=== PATIENT | female | born 1955 | race Caucasian/White ===

== ENCOUNTER 2021-08-13 11:46 | Emergency (ER) | payer OTHER ==
[2021-08-13 12:14] VITALS: TEMP 97.8; BMI 31.8
[2021-08-13] MEDS ORDERED: KETOROLAC TROMETHAMINE 15 MG/ML VIAL IVPUSH ONE (14:01)
[2021-08-13] MEDS ORDERED: SODIUM CHLORIDE 0.9% 500 ML INFUS.BAG IV ONE (14:01)
[2021-08-13] MEDS ORDERED: KETOROLAC TROMETHAMINE 15 MG/ML VIAL ONE (14:20)
[2021-08-13 14:33] LABS: BASO % 0.6 % (0-2.0); EOS % 1.6 % (0-4.5); HEMOGLOBIN 14.5 GM/dL (10.7-15.3); LYMPH % 30.4 % (8-40); MCH 32.1 pg (25.7-33.7); MCHC 34.4 g/dl (32.0-36.0); MEAN CELL VOLUME 93.3 fl (80-96); MEAN PLT VOLUME 8.3 fl (7.5-11.1); MONO % 11.1 % (3.8-10.2); NEUT % 56.3 % (42.8-82.8); PLATELET COUNT 287 10^3/uL (134-434); RDW 13.1 % (11.6-15.6); WHITE BLOOD COUNT 9.1 K/mm3 (4.0-10.0)
[2021-08-13 15:02] LABS: ALBUMIN 3.6 g/dl (3.4-5.0); BLOOD UREA NITROGEN 13.2 mg/dL (7-18); CALCIUM 8.9 mg/dL (8.5-10.1)
[2021-08-13 15:07] LABS: BILIRUBIN,TOTAL 0.4 mg/dL (0.2-1); CREATININE 0.5 mg/dL (0.55-1.3); TOT PROT 6.9 g/dl (6.4-8.2)
[2021-08-13 16:05] LABS: EPI CELLS >36 /uL (0-25.1); HYALINE CASTS 2 /uL (0-3.1); PH,URINE 5.5 (5.0-8.0); URINE APPEARANCE CLOUDY; URINE BACTERIA 1131 /uL (0-1359); URINE BILIRUBIN NEGATIVE (NEGATIVE); URINE COLOR YELLOW; URINE GLUCOSE (UA) NEGATIVE (NEGATIVE); URINE KETONE NEGATIVE (NEGATIVE); URINE LEUK ESTERASE NEGATIVE (NEGATIVE); URINE NITRITE NEGATIVE (NEGATIVE); URINE PROTEIN NEGATIVE (NEGATIVE); URINE RBC 5 /uL (0-23.9); URINE UROBILINOGEN 0.2 mg/dL (0.2-1.0); URINE WBC 32 /uL (0-25.8)
[2021-08-13 18:59] VITALS: BP 148/76; PULSE 80
== END 2021-08-13 18:59 | disposition home or self-care (01) ==
LOC: JER 11:46
PROC: 3E0333Z Introduction of Anti-inflammatory into Peripheral Vein, Percutaneous Approach (ICD-10-PCS; principal; 2021-08-13)
DX: R10.9 Unspecified abdominal pain (principal)
CPT/HCPCS: 36415; 74176-TC; 80053; 81003; 85025; 93005; 93010; 96374; 99285-25

== ENCOUNTER 2021-12-01 11:07 | Observation (INO) | payer OTHER ==
[2021-12-01] MEDS ORDERED: predniSONE 20 MG TABLET (UD) PO ONE (12:07)
[2021-12-01] MEDS ORDERED: ALBUTEROL SO4 2.5/IPRATROPIUM 0.5 INH SOL 3 ML VIAL.NEB. NEB ONE (12:16)
[2021-12-01] MEDS ORDERED: predniSONE 20 MG TABLET (UD) ONE (12:16)
[2021-12-01] MEDS: ALBUTEROL SO4 2.5/IPRATROPIUM 0.5 INH SOL 3 ML VIAL.NEB. NEB SCH ×3 (12:49→13:20)
[2021-12-01 13:50] LABS: BASO % 0.6 % (0-2.0); EOS % 1.6 % (0-4.5); HEMATOCRIT 43.3 % (32.4-45.2); HEMOGLOBIN 14.6 GM/dL (10.7-15.3); LYMPH % 33.5 % (8-40); MCH 31.1 pg (25.7-33.7); MCHC 33.6 g/dl (32.0-36.0); MEAN CELL VOLUME 92.3 fl (80-96); MEAN PLT VOLUME 8.2 fl (7.5-11.1); MONO % 12.4 % (3.8-10.2); NEUT % 51.9 % (42.8-82.8); PLATELET COUNT 290 10^3/uL (134-434); RBC 4.69 M/mm3 (3.60-5.2); RDW 13.1 % (11.6-15.6); WHITE BLOOD COUNT 8.8 K/mm3 (4.0-10.0)
[2021-12-01 14:16] LABS: ALBUMIN 3.4 g/dl (3.4-5.0); CALCIUM 9.1 mg/dL (8.5-10.1)
[2021-12-01 14:20] LABS: CREATININE 0.6 mg/dL (0.55-1.3)
[2021-12-01 14:21] LABS: BILIRUBIN,TOTAL 0.5 mg/dL (0.2-1); TOT PROT 7.2 g/dl (6.4-8.2)
[2021-12-01] MEDS ORDERED: SODIUM CHLORIDE 0.9% 500 ML INFUS.BAG IV ONE (14:43)
[2021-12-01] MEDS ORDERED: diazePAM CARPU-JECT 10 MG/2 ML DISP.SYRIN IVPUSH ONE ×2 (15:24→16:36)
[2021-12-01] MEDS ORDERED: diazePAM CARPU-JECT 10 MG/2 ML DISP.SYRIN ONE ×2 (15:34→17:40)
[2021-12-01] MEDS ORDERED: ALBUTEROL SO4 HFA INHALER IH PRN (20:55)
[2021-12-01] MEDS ORDERED: HYDROCHLOROTHIAZIDE 25 MG TABLET (FP) PO SCH (21:00)
[2021-12-01] MEDS ORDERED: ATORVASTATIN CA 20 MG TABLET (FP) ONE (21:12)
[2021-12-01] MEDS ORDERED: HYDROCHLOROTHIAZIDE 25 MG TABLET (FP) ONE (21:12)
[2021-12-01] MEDS ORDERED: METOPROLOL TARTRATE 25 MG TABLET (FP) ONE (21:12)
[2021-12-01] MEDS: METOPROLOL TARTRATE 25 MG TABLET (FP) PO SCH (21:18)
[2021-12-01] MEDS: ATORVASTATIN CA 20 MG TABLET (FP) PO SCH (21:18)
[2021-12-01] MEDS ORDERED: MELATONIN 5 MG TABLETS PO ONE (21:46)
[2021-12-01] MEDS ORDERED: MONTELUKAST NA 5 MG TAB.CHEW PO SCH (22:14)
[2021-12-01] MEDS ORDERED: MELATONIN 5 MG TABLETS ONE (22:17)
[2021-12-01] MEDS ORDERED: LORazepam 1 MG TABLET PO PRN (22:25)
[2021-12-01] MEDS ORDERED: FOLIC ACID INJECTION - 1 MG, THIAMINE HCL 100 MG, MULTIVIT INJECTION ADULT 10 ML in SOD... IVPB ONE (23:00)
[2021-12-01] MEDS ORDERED: THIAMINE HCL 100 MG TABLET (FP) ONE (23:36)
[2021-12-01] MEDS ORDERED: MONTELUKAST NA 10 MG TABLET ONE (23:36)
[2021-12-01] MEDS ORDERED: methylPREDNISolone NA SUCC 40 MG/1 ML VIAL ONE (23:36)
[2021-12-01] MEDS ORDERED: AZITHROMYCIN IVPB 500 MG/250 ML BAG IVPB ONE (23:37)
[2021-12-01] MEDS ORDERED: LORazepam 1 MG TABLET ONE (23:47)
[2021-12-02] MEDS: LORazepam 1 MG TABLET PO SCH ×6 (00:01→22:23)
[2021-12-02] MEDS: BUDESONIDE/FORMETEROL FUMARATE 80/4.5 mcg INHALER IH SCH ×3 (00:01→23:06)
[2021-12-02] MEDS: methylPREDNISolone NA SUCC 40 MG/1 ML VIAL IVPUSH SCH ×3 (00:01→10:14)
[2021-12-02] MEDS: AZITHROMYCIN IVPB 500 MG/250 ML BAG IVPB SCH ×2 (00:02→10:20)
[2021-12-02] MEDS: THIAMINE HCL 100 MG TABLET (FP) PO SCH ×3 (00:02→22:23)
[2021-12-02] MEDS ORDERED: ALBUTEROL SO4 HFA INHALER IH PRN (00:32)
[2021-12-02] MEDS ORDERED: methylPREDNISolone NA SUCC 40 MG/1 ML VIAL ONE ×2 (03:02→09:42)
[2021-12-02] MEDS ORDERED: INSULIN (NOVOLOG) ASPART 100 UNITS/ML 10ML VIAL ONE (06:02)
[2021-12-02] MEDS ORDERED: LORazepam 1 MG TABLET ONE ×2 (06:02→11:21)
[2021-12-02] MEDS: INSULIN SLIDING SCALE (NOVOLOG) 1 VIAL SQ SCH ×4 (06:20→22:30)
[2021-12-02 07:49] LABS: CALCIUM 8.2 mg/dL (8.5-10.1)
[2021-12-02 07:50] LABS: ALBUMIN 3.1 g/dl (3.4-5.0); BLOOD UREA NITROGEN 12.4 mg/dL (7-18); MAGNESIUM 1.3 mg/dL (1.8-2.4)
[2021-12-02 07:52] LABS: CREATININE 0.6 mg/dL (0.55-1.3); PHOSPHOROUS 3.4 mg/dL (2.5-4.9)
[2021-12-02 07:54] LABS: TOT PROT 6.3 g/dl (6.4-8.2)
[2021-12-02 07:55] LABS: BILIRUBIN,TOTAL 0.6 mg/dL (0.2-1)
[2021-12-02 08:38] LABS: HEMATOCRIT 38.7 % (32.4-45.2); HEMOGLOBIN 12.9 GM/dL (10.7-15.3); MCH 31.3 pg (25.7-33.7); MCHC 33.4 g/dl (32.0-36.0); MEAN CELL VOLUME 93.9 fl (80-96); MEAN PLT VOLUME 8.3 fl (7.5-11.1); PLATELET COUNT 229 10^3/uL (134-434); RBC 4.12 M/mm3 (3.60-5.2); RDW 13.1 % (11.6-15.6); WHITE BLOOD COUNT 13.7 K/mm3 (4.0-10.0)
[2021-12-02] MEDS: ALBUTEROL SO4 2.5/IPRATROPIUM 0.5 INH SOL 3 ML VIAL.NEB. NEB SCH ×3 (08:46→20:12)
[2021-12-02] MEDS ORDERED: ALBUTEROL SO4 2.5/IPRATROPIUM 0.5 INH SOL 3 ML VIAL.NEB. NEB ONE (09:40)
[2021-12-02] MEDS ORDERED: THIAMINE HCL 100 MG TABLET (FP) ONE (09:41)
[2021-12-02] MEDS ORDERED: METOPROLOL TARTRATE 25 MG TABLET (FP) ONE (09:41)
[2021-12-02] MEDS ORDERED: ENOXAPARIN NA (PORCINE) 40 MG/0.4 ML DISP.SYRIN SQ ONE (09:41)
[2021-12-02] MEDS ORDERED: NICOTINE 14 MG/24 HOURS TOPICAL PATCH TD ONE (09:41)
[2021-12-02] MEDS ORDERED: PANTOPRAZOLE 20 MG TABLET PO ONE (09:41)
[2021-12-02] MEDS ORDERED: HYDROCHLOROTHIAZIDE 25 MG TABLET (FP) ONE (09:41)
[2021-12-02] MEDS ORDERED: FOLIC ACID 1 MG TABLET (FP) ONE (09:41)
[2021-12-02] MEDS ORDERED: AZITHROMYCIN IVPB 500 MG/250 ML BAG IVPB ONE (09:42)
[2021-12-02 09:59] LABS: ANISOCYTOSIS 0; MACROCYTOSIS 0
[2021-12-02] MEDS: PANTOPRAZOLE 20 MG TABLET PO SCH (10:14)
[2021-12-02] MEDS: amLODIPine BESYLATE 10 MG TABLET (FP) PO SCH (10:14)
[2021-12-02] MEDS: ENOXAPARIN NA (PORCINE) 40 MG/0.4 ML DISP.SYRIN SQ SCH (10:14)
[2021-12-02] MEDS: HYDROCHLOROTHIAZIDE 25 MG TABLET (FP) PO SCH (10:14)
[2021-12-02] MEDS: NICOTINE 14 MG/24 HOURS TOPICAL PATCH TD SCH (10:14)
[2021-12-02] MEDS: METOPROLOL TARTRATE 25 MG TABLET (FP) PO SCH ×2 (10:14→22:23)
[2021-12-02] MEDS: FOLIC ACID 1 MG TABLET (FP) PO SCH (10:14)
[2021-12-02] MEDS ORDERED: MAGNESIUM 2GM/50ML STERILE WATER IVPB IVPB ONE (12:58)
[2021-12-02] MEDS ORDERED: MAGNESIUM SULFATE IN WATER 2 GM/50 ML IVPB IVPB ONE (13:59)
[2021-12-02 15:58] LABS: URINE APPEARANCE CLEAR; URINE BILIRUBIN NEGATIVE (NEGATIVE); URINE COLOR YELLOW; URINE GLUCOSE (UA) 3+ (NEGATIVE); URINE KETONE NEGATIVE (NEGATIVE); URINE LEUK ESTERASE NEGATIVE (NEGATIVE); URINE NITRITE NEGATIVE (NEGATIVE); URINE PROTEIN NEGATIVE (NEGATIVE); URINE UROBILINOGEN 0.2 mg/dL (0.2-1.0)
[2021-12-02 16:15] LABS: METHADONE, UR NEGATIVE (NEGATIVE)
[2021-12-02 16:16] LABS: OPIATES, URI NEGATIVE (NEGATIVE); PHENCYCLIDINE,URINE NEGATIVE (NEGATIVE); URINE BENZODIAZEPINES NEGATIVE (NEGATIVE)
[2021-12-02 16:31] LABS: COCAINE, UR NEGATIVE (NEGATIVE); URINE AMPHETAMINES NEGATIVE (NEGATIVE); URINE BARBITURATES NEGATIVE (NEGATIVE)
[2021-12-02 17:35] VITALS: BMI 27.6
[2021-12-02] MEDS ORDERED: PNEUMOC 20-VAL CONJ-DIP CRM/PF 0.5 ML SYRINGE IM ONE (19:00)
[2021-12-02] MEDS ORDERED: FLU VACC QS2022-23(6MOS UP)/PF 60 MCG/0.5 ML SYRINGE IM ONE (19:00)
[2021-12-02] MEDS: MONTELUKAST NA 10 MG TABLET PO SCH (22:23)
[2021-12-02] MEDS: ATORVASTATIN CA 20 MG TABLET (FP) PO SCH (22:23)
[2021-12-03] MEDS: LORazepam 1 MG TABLET PO SCH ×4 (04:55→22:22)
[2021-12-03] MEDS: INSULIN SLIDING SCALE (NOVOLOG) 1 VIAL SQ SCH ×4 (06:09→21:25)
[2021-12-03] MEDS: ALBUTEROL SO4 2.5/IPRATROPIUM 0.5 INH SOL 3 ML VIAL.NEB. NEB SCH ×2 (08:40→12:00)
[2021-12-03] MEDS: ENOXAPARIN NA (PORCINE) 40 MG/0.4 ML DISP.SYRIN SQ SCH (10:23)
[2021-12-03] MEDS: amLODIPine BESYLATE 10 MG TABLET (FP) PO SCH (10:24)
[2021-12-03] MEDS: FOLIC ACID 1 MG TABLET (FP) PO SCH (10:24)
[2021-12-03] MEDS: METOPROLOL TARTRATE 25 MG TABLET (FP) PO SCH ×2 (10:24→21:27)
[2021-12-03] MEDS: HYDROCHLOROTHIAZIDE 25 MG TABLET (FP) PO SCH (10:24)
[2021-12-03] MEDS: predniSONE 20 MG TABLET (UD) PO SCH (10:24)
[2021-12-03] MEDS: THIAMINE HCL 100 MG TABLET (FP) PO SCH ×2 (10:24→21:27)
[2021-12-03] MEDS: PANTOPRAZOLE 20 MG TABLET PO SCH (10:24)
[2021-12-03] MEDS: NICOTINE 14 MG/24 HOURS TOPICAL PATCH TD SCH (10:27)
[2021-12-03] MEDS: AZITHROMYCIN IVPB 500 MG/250 ML BAG IVPB SCH (10:31)
[2021-12-03] MEDS: BUDESONIDE/FORMETEROL FUMARATE 80/4.5 mcg INHALER IH SCH (10:32)
[2021-12-03 11:32] LABS: HEMATOCRIT 38.5 % (32.4-45.2); HEMOGLOBIN 13.1 GM/dL (10.7-15.3); MCH 31.9 pg (25.7-33.7); MCHC 33.9 g/dl (32.0-36.0); MEAN PLT VOLUME 7.8 fl (7.5-11.1); PLATELET COUNT 221 10^3/uL (134-434); RBC 4.09 M/mm3 (3.60-5.2); RDW 13.3 % (11.6-15.6); WHITE BLOOD COUNT 22.6 K/mm3 (4.0-10.0)
[2021-12-03 12:11] LABS: CALCIUM 8.6 mg/dL (8.5-10.1)
[2021-12-03 12:12] LABS: ALBUMIN 3.2 g/dl (3.4-5.0); BLOOD UREA NITROGEN 19.2 mg/dL (7-18); MAGNESIUM 2.1 mg/dL (1.8-2.4)
[2021-12-03 12:15] LABS: BILIRUBIN,TOTAL 0.6 mg/dL (0.2-1); CREATININE 0.7 mg/dL (0.55-1.3); PHOSPHOROUS 2.9 mg/dL (2.5-4.9)
[2021-12-03 12:17] LABS: TOT PROT 6.4 g/dl (6.4-8.2)
[2021-12-03] MEDS ORDERED: POTASSIUM CHLORIDE TABS 20 MEQ TABLET.ER (FP) PO ONE ×2 (15:10→20:00)
[2021-12-03] MEDS: INSULIN (NOVOLOG) ASPART 100 UNITS/ML 10ML VIAL SQ SCH (16:40)
[2021-12-03] MEDS: ATORVASTATIN CA 20 MG TABLET (FP) PO SCH (21:26)
[2021-12-03] MEDS: MONTELUKAST NA 10 MG TABLET PO SCH (21:27)
[2021-12-04] MEDS ORDERED: LORazepam 0.5 MG TABLET PO PRN
[2021-12-04] MEDS: LORazepam 0.5 MG TABLET PO SCH ×3 (05:47→17:57)
[2021-12-04] MEDS: INSULIN (NOVOLOG) ASPART 100 UNITS/ML 10ML VIAL SQ SCH ×3 (06:41→17:06)
[2021-12-04] MEDS: INSULIN SLIDING SCALE (NOVOLOG) 1 VIAL SQ SCH ×3 (06:41→17:05)
[2021-12-04] MEDS ORDERED: INSULIN (LEVEMIR) 100 UNITS/ML UNITS SQ SCH (07:00)
[2021-12-04 07:40] LABS: HEMATOCRIT 41.3 % (32.4-45.2); HEMOGLOBIN 13.9 GM/dL (10.7-15.3); MCH 31.3 pg (25.7-33.7); MCHC 33.6 g/dl (32.0-36.0); MEAN CELL VOLUME 93.1 fl (80-96); MEAN PLT VOLUME 8.2 fl (7.5-11.1); PLATELET COUNT 268 10^3/uL (134-434); RBC 4.44 M/mm3 (3.60-5.2); RDW 13.1 % (11.6-15.6); WHITE BLOOD COUNT 18.2 K/mm3 (4.0-10.0)
[2021-12-04 08:15] LABS: ALBUMIN 3.4 g/dl (3.4-5.0); BLOOD UREA NITROGEN 19.7 mg/dL (7-18); MAGNESIUM 1.6 mg/dL (1.8-2.4)
[2021-12-04 08:19] LABS: CREATININE 0.6 mg/dL (0.55-1.3); PHOSPHOROUS 3.2 mg/dL (2.5-4.9)
[2021-12-04 08:20] LABS: BILIRUBIN,TOTAL 0.3 mg/dL (0.2-1); TOT PROT 6.6 g/dl (6.4-8.2)
[2021-12-04] MEDS ORDERED: MAGNESIUM SULF 50% (8.12 MEQ/2 ML-1 GM VIAL) IVPB ONE (08:34)
[2021-12-04] MEDS: ENOXAPARIN NA (PORCINE) 40 MG/0.4 ML DISP.SYRIN SQ SCH (09:17)
[2021-12-04] MEDS: predniSONE 20 MG TABLET (UD) PO SCH (09:18)
[2021-12-04] MEDS: HYDROCHLOROTHIAZIDE 25 MG TABLET (FP) PO SCH (09:18)
[2021-12-04] MEDS: amLODIPine BESYLATE 10 MG TABLET (FP) PO SCH (09:18)
[2021-12-04] MEDS: PANTOPRAZOLE 20 MG TABLET PO SCH (09:18)
[2021-12-04] MEDS: METOPROLOL TARTRATE 25 MG TABLET (FP) PO SCH (09:18)
[2021-12-04] MEDS: FOLIC ACID 1 MG TABLET (FP) PO SCH (09:18)
[2021-12-04] MEDS: THIAMINE HCL 100 MG TABLET (FP) PO SCH (09:19)
[2021-12-04] MEDS: NICOTINE 14 MG/24 HOURS TOPICAL PATCH TD SCH (09:20)
[2021-12-04] MEDS: AZITHROMYCIN IVPB 500 MG/250 ML BAG IVPB SCH (11:00)
[2021-12-04 12:03] VITALS: RESP 18
[2021-12-04 18:51] VITALS: BP 137/81; PULSE 77; TEMP 98
[2021-12-05] MEDS ORDERED: LORazepam 0.5 MG TABLET PO ONE (05:00)
== END 2021-12-04 19:52 ==
LOC: JER 11:07 → INTOOBSV 18:06 → JERBED 18:06 → J4W 12-02 16:52
PROVIDERS: ADMIT Internal Medicine; ATTEND Internal Medicine
PROC: 3E033GC Introduction of Other Therapeutic Substance into Peripheral Vein, Percutaneous Approach (ICD-10-PCS; principal; 2021-12-01)
PROC: 3E033NZ Introduction of Analgesics, Hypnotics, Sedatives into Peripheral Vein, Percutaneous Approach (ICD-10-PCS; 2021-12-01)
PROC: 3E03329 Introduction of Other Anti-infective into Peripheral Vein, Percutaneous Approach (ICD-10-PCS; 2021-12-01)
PROC: 3E0F7SF Introduction of Other Gas into Respiratory Tract, Via Natural or Artificial Opening (ICD-10-PCS; 2021-12-01)
PROC: 3E02340 Introduction of Influenza Vaccine into Muscle, Percutaneous Approach (ICD-10-PCS; 2021-12-01)
DX: J44.1 Chronic obstructive pulmonary disease with (acute) exacerbation (principal); J20.9 Acute bronchitis, unspecified; J44.0 Chronic obstructive pulmonary disease with (acute) lower respiratory infection; J45.998 Other asthma; F10.10 Alcohol abuse, uncomplicated; R07.89 Other chest pain; R05.1 Acute cough; E11.9 Type 2 diabetes mellitus without complications; F17.200 Nicotine dependence, unspecified, uncomplicated; I10 Essential (primary) hypertension; Z29.8 Encounter for other specified prophylactic measures; R00.0 Tachycardia, unspecified; R91.1 Solitary pulmonary nodule; M94.0 Chondrocostal junction syndrome [Tietze]; E83.42 Hypomagnesemia; E87.6 Hypokalemia; Z79.4 Long term (current) use of insulin; Z79.84 Long term (current) use of oral hypoglycemic drugs; Z88.8 Allergy status to other drugs, medicaments and biological substances
CPT/HCPCS: 0241U-QW; 36415; 71046-TC-FY; 71275-TC; 80053; 80307; 81003; 82962; 83735; 84100; 84443; 84484; 85025; 85027; 87086; 90471; 90677; 93005; 93010; 94640; 94761; 96372; 96374; 96375; 97116-GP; 97161-GP; 99285-25; G0378; Q2036; Q9967

== ENCOUNTER 2022-04-24 18:06 | Inpatient (IN) | payer OTHER ==
[2022-04-24] MEDS ORDERED: RAPID SEQUENCE INTUBATION KIT NR ONE (18:10)
[2022-04-24] MEDS ORDERED: NOREPINEPHRINE BITARTRATE 4 MG/4 ML ML IV ONE (18:26)
[2022-04-24] MEDS ORDERED: CEFTRIAXONE 1,000 MG in DEXTROSE 5%-WATER - 50 ML IVPB ONE (18:27)
[2022-04-24] MEDS ORDERED: OCTREOTIDE ACETATE 200 MCG, OCTREOTIDE ACETATE 1,000 MCG in DEXTROSE 5%-WATER - 496 ML IVPB SCH ×2 (18:30→20:30)
[2022-04-24] MEDS ORDERED: VASOPRESSIN 20 UNITS/ML VIAL IV ONE (18:38)
[2022-04-24] MEDS ORDERED: EPINEPHrine 1:10,000 (P-F SYR) 1 MG/10 ML DISP.SYRIN ONE ×2 (18:45)
[2022-04-24] MEDS ORDERED: SODIUM BICARBONATE 8.4% 50 MEQ/50 ML DISP.SYRIN IVPUSH ONE (19:05)
[2022-04-24] MEDS ORDERED: CALCIUM CHLORIDE 10% 1 GM/10 ML *VIAL IVPUSH ONE (19:05)
[2022-04-24] MEDS ORDERED: LORazepam 2 MG/ML SDV VIAL IM ONE (19:07)
[2022-04-24] MEDS: VASOPRESSIN 40 UNITS in SODIUM CHLORIDE 98 ML IVPB SCH (19:10)
[2022-04-24 19:18] LABS: BASO % 0.2 % (0-2.0); EOS % 0.1 % (0-4.5); HEMATOCRIT 36.2 % (32.4-45.2); HEMOGLOBIN 11.6 GM/dL (10.7-15.3); LYMPH % 10.6 % (8-40); MCH 30.5 pg (25.7-33.7); MCHC 31.9 g/dl (32.0-36.0); MEAN CELL VOLUME 95.7 fl (80-96); MEAN PLT VOLUME 9.4 fl (7.5-11.1); MONO % 8.6 % (3.8-10.2); NEUT % 80.5 % (42.8-82.8); PLATELET COUNT 240 10^3/uL (134-434); RBC 3.79 M/mm3 (3.60-5.2); WHITE BLOOD COUNT 20.1 K/mm3 (4.0-10.0)
[2022-04-24] MEDS ORDERED: NOREPINEPHRINE BITARTRATE 8,000 MCG in DEXTROSE 5%-WATER - 492 ML IV SCH (19:30)
[2022-04-24] MEDS ORDERED: TRIPLE LUMEN FLUSH 4 ML ML IVPUSH PRN ×2 (19:34→23:26)
[2022-04-24] MEDS ORDERED: NOREPINEPHRINE BITARTRATE/D5W 8 MG/250 ML BAG IVPB SCH (19:45)
[2022-04-24 19:47] LABS: CALCIUM 11.9 mg/dL (8.5-10.1)
[2022-04-24 19:48] LABS: ALBUMIN 2.8 g/dl (3.4-5.0); BLOOD UREA NITROGEN 53.5 mg/dL (7-18); CO2 16 mmol/L (21-32)
[2022-04-24 19:51] LABS: CREATININE 2.9 mg/dL (0.55-1.3); SGOT/AST 872 U/L (15-37); SGPT/ALT 438 U/L (13-61)
[2022-04-24 19:52] LABS: BILIRUBIN,TOTAL 0.5 mg/dL (0.2-1); TOT PROT 5.4 g/dl (6.4-8.2)
[2022-04-24 19:54] LABS: ALK PHOS 110 U/L (45-117)
[2022-04-24 20:01] LABS: ACTIVATED PTT 33.7 SECONDS (25.2-36.5); INR 1.17 (0.83-1.09); PROTHROMBIN TIME (PATIENT) 13.6 SEC (9.7-13.0)
[2022-04-24 20:12] LABS: CHLORIDE 94 mmol/L (98-107); SODIUM 140 mmol/L (136-145)
[2022-04-24 20:16] LABS: EPI CELLS >36 /uL (0-25.1); HYALINE CASTS 50 /uL (0-3.1); PH,URINE 5.5 (5.0-8.0); URINE APPEARANCE TURBID; URINE BACTERIA 83 /uL (0-1359); URINE BILIRUBIN NEGATIVE (NEGATIVE); URINE COLOR YELLOW; URINE GLUCOSE (UA) 3+ (NEGATIVE); URINE KETONE TRACE (NEGATIVE); URINE LEUK ESTERASE NEGATIVE (NEGATIVE); URINE NITRITE NEGATIVE (NEGATIVE); URINE PROTEIN 2+ (NEGATIVE); URINE UROBILINOGEN 0.2 mg/dL (0.2-1.0)
[2022-04-24] MEDS: PANTOPRAZOLE SODIUM 80 MG in SODIUM CHLORIDE 100 ML IVPB SCH (20:16)
[2022-04-24 20:18] LABS: ANION GAP 30 MMOL/L (8-16); GLUCOSE,RANDOM 925 mg/dL (74-106)
[2022-04-24] MEDS ORDERED: OCTREOTIDE ACETATE 100 MCG/1 ML ONE (20:27)
[2022-04-24 20:29] LABS: ANISOCYTOSIS 1+; MACROCYTOSIS 0
[2022-04-24] MEDS ORDERED: EPINEPHrine 1:10,000 (P-F SYR) 1 MG/10 ML DISP.SYRIN IVPUSH ONE ×2 (20:29→20:30)
[2022-04-24 20:31] LABS: LACTIC ACID > 15.0 mmol/L (0.4-2.0)
[2022-04-24] MEDS: OCTREOTIDE ACETATE 50 MCG/1 ML - 1 ML VIAL IVPUSH ONE ×2 (20:32→20:41)
[2022-04-24] MEDS ORDERED: CEFTRIAXONE 1 GM/50 ML BAG ONE (20:50)
[2022-04-24] MEDS ORDERED: SODIUM CHLORIDE 1,000 ML IV STA ×2 (20:50→20:51)
[2022-04-24] MEDS ORDERED: INSULIN REGULAR HUMAN 100 UNITS/ML *VIAL* (FOR IVP) IVPUSH ONE (20:53)
[2022-04-24] MEDS ORDERED: DEXTROSE 50%-WATER - 25 GM/50 ML VIAL IVPUSH PRN (20:53)
[2022-04-24] MEDS ORDERED: NOREPINEPHRINE BITARTRATE/D5W 8 MG/250 ML BAG IVPB ONE (20:56)
[2022-04-24] MEDS ORDERED: SODIUM CHLORIDE 0.45% 1,000 ML with POTASSIUM CHLORIDE 40 MEQ IV SCH (21:00)
[2022-04-24 21:03] LABS: URINE RBC 43.3 /uL (0-23.9); URINE WBC 259.1 /uL (0-25.8)
[2022-04-24] MEDS ORDERED: PHENYLEPHRINE HCL 10 MG/1 ML SINGLE DOSE VIAL ONE (21:09)
[2022-04-24] MEDS ORDERED: CHLORHEXIDINE GLUCONATE 4% CLEANSER FOR DECOLONIZATION TP SCH (22:00)
[2022-04-24] MEDS: ALBUTEROL SO4 2.5/IPRATROPIUM 0.5 INH SOL 3 ML VIAL.NEB. NEB SCH (22:39)
[2022-04-24] MEDS: INSULIN REGULAR 100 UNITS in SODIUM CHLORIDE 99 ML IVPB SCH (22:48)
[2022-04-24] MEDS ORDERED: POTASSIUM CHLORIDE 20 MEQ PREMIX IVPB 100 ML IVPB SCH (23:00)
[2022-04-24] MEDS: POTASSIUM CHLORIDE 40 MEQ in SODIUM CHLORIDE 0.45% 1,000 ML IV SCH (23:49)
[2022-04-25 01:49] LABS: ARTERIAL BLD GAS O2 SATURATION 90.9 % (95-98); ARTERIAL BLOOD GAS BASE EXCESS -23.5 mmol/L (-2-2); ARTERIAL BLOOD GAS PO2 95.4 mmHg (80-100)
[2022-04-25 01:51] LABS: VENT MODE A/C; VENT RATE 20
[2022-04-25 01:53] LABS: ARTERIAL BLOOD GAS pH 6.912 (7.350-7.450)
[2022-04-25 02:40] LABS: CHLORIDE 102 mmol/L (98-107); SODIUM 138 mmol/L (136-145)
[2022-04-25 02:42] LABS: ALBUMIN 2.3 g/dl (3.4-5.0); ANION GAP 23 MMOL/L (8-16); BLOOD UREA NITROGEN 56.7 mg/dL (7-18); CO2 13 mmol/L (21-32)
[2022-04-25 02:45] LABS: CREATININE 3.5 mg/dL (0.55-1.3)
[2022-04-25 02:48] LABS: BILIRUBIN,TOTAL 0.7 mg/dL (0.2-1); TOT PROT 4.9 g/dl (6.4-8.2)
[2022-04-25 03:07] VITALS: TEMP 93.3
[2022-04-25 03:24] LABS: ALK PHOS 293 U/L (45-117); CALCIUM 7.5 mg/dL (8.5-10.1); GLUCOSE,RANDOM 752 mg/dL (74-106); SGOT/AST 7903 U/L (15-37); SGPT/ALT 3841 U/L (13-61)
[2022-04-25] MEDS: MUPIROCIN 2% TOPICAL OINTMENT FOR DECOLONIZATION NS SCH ×2 (05:02→09:03)
[2022-04-25] MEDS: PANTOPRAZOLE SODIUM 80 MG in SODIUM CHLORIDE 100 ML IVPB SCH (05:14)
[2022-04-25] MEDS: POTASSIUM CHLORIDE 40 MEQ in SODIUM CHLORIDE 0.45% 1,000 ML IV SCH ×2 (05:14→12:43)
[2022-04-25] MEDS ORDERED: INSULIN REGULAR HUMAN 100 UNITS/ML *VIAL IVPUSH ONE ×2 (06:30→11:01)
[2022-04-25] MEDS ORDERED: AMPICILLIN NA/SULBACTAM NA 3 GM in SODIUM CHLORIDE 100 ML IVPB SCH (07:30)
[2022-04-25 07:40] LABS: HEMATOCRIT 46.1 % (32.4-45.2); HEMOGLOBIN 14.7 GM/dL (10.7-15.3); MCH 31.1 pg (25.7-33.7); MCHC 31.8 g/dl (32.0-36.0); MEAN CELL VOLUME 97.6 fl (80-96); MEAN PLT VOLUME 8.6 fl (7.5-11.1); PLATELET COUNT 170 10^3/uL (134-434); RBC 4.72 M/mm3 (3.60-5.2); RDW 14.4 % (11.6-15.6); WHITE BLOOD COUNT 18.6 K/mm3 (4.0-10.0)
[2022-04-25 07:54] LABS: CHLORIDE 104 mmol/L (98-107); SODIUM 136 mmol/L (136-145)
[2022-04-25 07:56] LABS: CALCIUM 7.1 mg/dL (8.5-10.1)
[2022-04-25 07:57] LABS: ALBUMIN 2.2 g/dl (3.4-5.0); ANION GAP 18 MMOL/L (8-16); BLOOD UREA NITROGEN 57.9 mg/dL (7-18); CO2 14 mmol/L (21-32)
[2022-04-25 07:58] LABS: BLOOD UREA NITROGEN 58.8 mg/dL (7-18); CALCIUM 7.2 mg/dL (8.5-10.1); CHLORIDE 104 mmol/L (98-107); CO2 11 mmol/L (21-32); MAGNESIUM 1.8 mg/dL (1.8-2.4); SODIUM 135 mmol/L (136-145)
[2022-04-25 08:00] LABS: CREATININE 3.8 mg/dL (0.55-1.3)
[2022-04-25] MEDS: ALBUTEROL SO4 2.5/IPRATROPIUM 0.5 INH SOL 3 ML VIAL.NEB. NEB SCH ×2 (08:00→11:42)
[2022-04-25 08:01] LABS: ALBUMIN 2.2 g/dl (3.4-5.0)
[2022-04-25 08:02] LABS: CREATININE 3.7 mg/dL (0.55-1.3); PHOSPHOROUS 5.4 mg/dL (2.5-4.9); TOT PROT 4.7 g/dl (6.4-8.2)
[2022-04-25 08:03] LABS: TOT PROT 4.6 g/dl (6.4-8.2)
[2022-04-25 08:19] LABS: ALK PHOS 368 U/L (45-117); GLUCOSE,RANDOM 819 mg/dL (74-106); SGOT/AST 9961 U/L (15-37); SGPT/ALT 4139 U/L (13-61)
[2022-04-25 08:34] LABS: LACTIC ACID 11.7 mmol/L (0.4-2.0)
[2022-04-25 08:34] LABS: ALK PHOS 363 U/L (45-117); ANION GAP 20 MMOL/L (8-16); ANISOCYTOSIS 0; GLUCOSE,RANDOM 854 mg/dL (74-106); HELMET CELLS 0; HOWELL-JOLLY BODIES 0; MACROCYTOSIS 0; OVALOCYTE 0; ROULEAU 0; SGOT/AST 9929 U/L (15-37); SGPT/ALT 3929 U/L (13-61); SICKELED CELLS 0; TARGET CELLS 0; TEAR DROP CELLS 0; TOXIC GRANULATION 0
[2022-04-25] MEDS: VASOPRESSIN 40 UNITS in SODIUM CHLORIDE 98 ML IVPB SCH (08:52)
[2022-04-25 09:03] VITALS: RESP 30
[2022-04-25 09:04] VITALS: BP 118/75; PULSE 100
[2022-04-25] MEDS: INSULIN REGULAR 100 UNITS in SODIUM CHLORIDE 99 ML IVPB SCH (10:08)
[2022-04-25] MEDS ORDERED: NOREPINEPHRINE 0.9 % NACL 8 MG/250 ML BAG IVPB SCH (11:30)
[2022-04-25 11:48] VITALS: BMI 27.8
== END 2022-04-25 18:00 | disposition expired | DRG 208 ==
LOC: JER 18:06 → JERBED 18:46 → JICU 22:25
PROVIDERS: ADMIT Internal Medicine Pulmonary Disease; ATTEND Internal Medicine Pulmonary Disease
PROC: 5A1935Z Respiratory Ventilation, Less than 24 Consecutive Hours (ICD-10-PCS; principal; 2022-04-24)
PROC: 0BH17EZ Insertion of Endotracheal Airway into Trachea, Via Natural or Artificial Opening (ICD-10-PCS; 2022-04-24)
PROC: 06HM33Z Insertion of Infusion Device into Right Femoral Vein, Percutaneous Approach (ICD-10-PCS; 2022-04-24)
PROC: 05H633Z Insertion of Infusion Device into Left Subclavian Vein, Percutaneous Approach (ICD-10-PCS; 2022-04-24)
PROC: 03HY32Z Insertion of Monitoring Device into Upper Artery, Percutaneous Approach (ICD-10-PCS; 2022-04-24)
PROC: 4A133B1 Monitoring of Arterial Pressure, Peripheral, Percutaneous Approach (ICD-10-PCS; 2022-04-24)
PROC: 4A133J1 Monitoring of Arterial Pulse, Peripheral, Percutaneous Approach (ICD-10-PCS; 2022-04-24)
DX: J96.90 Respiratory failure, unspecified, unspecified whether with hypoxia or hypercapnia (principal); E11.10 Type 2 diabetes mellitus with ketoacidosis without coma; K72.00 Acute and subacute hepatic failure without coma; E87.0 Hyperosmolality and hypernatremia; K92.2 Gastrointestinal hemorrhage, unspecified; N17.9 Acute kidney failure, unspecified; M62.82 Rhabdomyolysis; I47.20 Ventricular tachycardia, unspecified; I46.9 Cardiac arrest, cause unspecified; J44.9 Chronic obstructive pulmonary disease, unspecified; I10 Essential (primary) hypertension; D64.9 Anemia, unspecified; F10.10 Alcohol abuse, uncomplicated; Z79.84 Long term (current) use of oral hypoglycemic drugs; R11.10 Vomiting, unspecified; R79.89 Other specified abnormal findings of blood chemistry; R57.8 Other shock; E78.5 Hyperlipidemia, unspecified; F17.210 Nicotine dependence, cigarettes, uncomplicated
CPT/HCPCS: 0241U-QW; 36415; 36430; 36600; 71045-TC-FY; 71046-TC-FY; 76700-TC; 80053; 81003; 82010; 82550; 82553; 82803; 82962; 83605; 83735; 84100; 84484; 85025; 85027; 85384; 85610; 85730; 86316; 86900; 86922; 87040; 87086; 87186; 93005; 93010; 93976; 94640; 99285-25; P9058